=== PATIENT | female | born 1955 | race Caucasian/White ===

== ENCOUNTER 2020-08-08 07:44 | Day surgery (SDC) | payer OTHER ==
[~2020-08-08 07:44] MED LIST: Lactated Ringers 1,000 ML IV SCH
[2020-08-08] MEDS ORDERED: Propofol 200 MG/20 ML SDV ONE ×2 (09:09→12:02)
[2020-08-08] MEDS ORDERED: fentaNYL 100 MCG/2 ML SDV ONE (09:09)
[2020-08-08 13:02] VITALS: BP 180/81; PULSE 75
--- NOTE | 2020-08-08 13:34 | OR ---
PREOPERATIVE DIAGNOSIS: History of colon polyps. POSTOPERATIVE DIAGNOSIS: Colon polyps. PROCEDURE PERFORMED: Total flexible colonoscopy with biopsies. ANESTHESIA: MAC anesthesia. COMPLICATIONS: None. BLOOD LOSS: Minimal. FINDINGS: 1. Ascending colon polyp, 8 mm, cold snare. 2. Transverse colon polyp, 5 mm, cold snare. 3. Sigmoid polyp, 4 mm, cold forceps. 4. Rectal polyp, 2 mm, cold forceps. START TIME: 1137. CECUM TIME: 1155. STOP TIME: 1215. BOWEL PREP: [place] class 3. INDICATIONS FOR PROCEDURE: Lita Roque is a 64-year-old female who has a history of colon polyps. Her last colonoscopy was 5 years ago. She has no family history of colorectal cancer. She denies bloody or dark black stools, here for colonoscopy. DETAILS OF PROCEDURE: Informed consent was obtained. The patient was brought to the procedure room and placed in left lateral decubitus position. MAC anesthesia was induced by Anesthesia colleagues. Colonoscope was introduced into the rectum and advanced all the way to the cecum. Appendiceal orifice and ileocecal valve were photographed. The colonoscope was then slowly withdrawn. No pathology was identified except for what is mentioned in the above findings section. A retroflexed view was obtained and the procedure was terminated. PATHOLOGY: A) Colon, ascending, polyp Fragmented tubular adenoma (s). No high-grade dysplasia or malignancy identified. B) Colon, transverse, polyp Sessile serrated polyp with features suggestive of sessile serrated adenoma. No high-grade dysplasia or malignancy identified. C) Colon, sigmoid, polyp Tubular adenoma. No high-grade dysplasia or malignancy identified. D) Colon, rectum, polyp Hyperplastic polyp. Repeat colonoscopy in 3 years. RKM: 08/08/2020 12:21:17 MODL: 08/08/2020 12:48:52 /[id number]
--- NOTE | 2020-08-14 08:41 | LETTER ---
08/13/2020 Vahid Ngo Piter [id number] [address] [place] [phone] RE: VAHID NGO PITER : [id number] Dear Roque: I am writing to inform you of the pathology results of your recent colonoscopy. You had 3 precancerous polyps. A precancerous polyp does not contain cancer, but it can become cancer, which is why we removed them. You also had 1 hyperplastic polyp which was completely benign and carries no risk of malignancy. You will need a repeat screening colonoscopy in 3 years. Please let me know if you have any questions or concerns about this. Warmest regards,
== END 2020-08-08 13:30 | disposition home or self-care (01) ==
LOC: VM.SDS 07:44
PROVIDERS: ATTEND Student in an Organized Health Care Education/Training Program
DX: Z12.11 Encounter for screening for malignant neoplasm of colon (principal); M81.0 Age-related osteoporosis without current pathological fracture; E78.00 Pure hypercholesterolemia, unspecified; G43.109 Migraine with aura, not intractable, without status migrainosus; G89.29 Other chronic pain; M25.552 Pain in left hip; E55.9 Vitamin D deficiency, unspecified; F17.210 Nicotine dependence, cigarettes, uncomplicated; D12.2 Benign neoplasm of ascending colon; D12.3 Benign neoplasm of transverse colon; D12.5 Benign neoplasm of sigmoid colon; K62.1 Rectal polyp; Z98.890 Other specified postprocedural states
CPT/HCPCS: 00811; J2704; J3010; J7120

== ENCOUNTER 2023-09-19 08:30 | Day surgery (SDC) | payer OTHER ==
[2023-09-19] MEDS: Lactated Ringers 1,000 ML IV SCH (08:45)
[2023-09-19] MEDS ORDERED: Midazolam 1 MG/ML 2 ML SDV ONE (09:40)
[2023-09-19] MEDS ORDERED: fentaNYL 100 MCG/2 ML SDV ONE (09:40)
[2023-09-19] MEDS ORDERED: Propofol 200 MG/20 ML SDV ONE (09:40)
[2023-09-19 10:18] VITALS: BP 184/86; PULSE 86
== END 2023-09-19 11:25 | disposition home or self-care (01) ==
LOC: VM.SDS 08:30
PROVIDERS: ATTEND Surgery
DX: Z12.11 Encounter for screening for malignant neoplasm of colon (principal); E78.00 Pure hypercholesterolemia, unspecified; I10 Essential (primary) hypertension; F32.A Depression, unspecified; Z79.899 Other long term (current) drug therapy; Z88.5 Allergy status to narcotic agent; Z87.891 Personal history of nicotine dependence; Z86.010 Personal history of colon polyps
CPT/HCPCS: 45378; J2250; J2704; J3010; J7120; J3490

== ENCOUNTER 2024-06-18 15:49 | Emergency (ER) | payer OTHER ==
[2024-06-18] MEDS ORDERED: Sodium Chloride 0.9% 10 ML Syringe FLUSH PRN (15:55)
[2024-06-18 16:13] LABS: BASOPHILS PERCENT AUTO 0.2 % (0.2-1.2); EOSINOPHILS ABSOLUTE AUTO 0.1 x10^3/uL (0.0-0.5); HEMATOCRIT 40.5 % (33.0-47.0); HEMOGLOBIN 13.5 g/dL (12.0-16.0); LYMPHOCYTES ABSOLUTE AUTO 1.5 x10^3/uL (1.0-4.8); LYMPHOCYTES PERCENT AUTO 24.4 % (25.0-50.0); MEAN CORPUSCULAR HEMOGLOBIN 30.5 pg (26.0-32.0); MEAN CORPUSCULAR HGB CONC 33.3 g/dL (32.0-36.0); MEAN CORPUSCULAR VOLUME 91.4 fL (78.0-93.0); MONOCYTES ABSOLUTE AUTO 0.7 x10^3/uL (0.0-0.8); MONOCYTES PERCENT AUTO 10.8 % (2.0-11.0); NEUTROPHILS PERCENT AUTO 63.6 % (50.0-80.0); PLATELET COUNT,PLT 250 x10^3/uL (130-400); RED BLOOD CELL COUNT 4.43 x10^6/uL (4.00-5.50); WHITE BLOOD CELL COUNT,WBC 6.2 x10^3/uL (4.0-10.0)
[2024-06-18] MEDS: Lactated Ringers 1,000 ML IV ONE (16:16)
[2024-06-18] MEDS: Ondansetron 4 MG/2 ML SDV IVPUSH ONE (16:16)
[2024-06-18] MEDS: Labetalol 20 MG/4 ML Syringe IVPUSH ONE ×3 (16:18→17:08)
[2024-06-18 16:38] LABS: A/G RATIO 1.03; ALANINE AMINOTRANSFERASE,ALT 25 U/L (14-59); ALBUMIN 3.9 g/dL (3.4-5.0); ALKALINE PHOSPHATASE 71 U/L (46-116); ASPARTATE AMNIOTRANSFERASE,AST 25 U/L (15-37); BILIRUBIN TOTAL 0.3 mg/dL (0.2-1.0); BLOOD UREA NITROGEN,BUN 21 mg/dL (7-18); CARBON DIOXIDE,CO2 25 mmol/L (21-32); CHLORIDE,CL 105 mmol/L (98-107); CREATININE 1.1 mg/dL (0.55-1.02); EST CRCL DRUG DOSING (CG) 37.45 mL/min; GLUCOSE RANDOM 91 mg/dL (70-99); MAGNESIUM 1.9 mg/dL (1.8-2.4); PROTEIN TOTAL,TP 7.7 g/dL (6.4-8.2); SODIUM,NA 138 mmol/L (136-145)
[2024-06-18 16:41] LABS: C-REACTIVE PROTEIN < 0.50 mg/dL (<=0.50); ESTIMATED GFR 55 mL/min (>=60)
[2024-06-18 17:20] VITALS: BP 170/95; PULSE 70
[2024-06-18] MEDS: amLODIPine 5 MG Tab PO ONE (17:31)
== END 2024-06-18 17:41 | disposition home or self-care (01) ==
LOC: VM.ED 15:49
DX: I10 Essential (primary) hypertension (principal); E78.00 Pure hypercholesterolemia, unspecified; Z79.899 Other long term (current) drug therapy; Z88.5 Allergy status to narcotic agent
CPT/HCPCS: 70450; 71045; 80053; 83735; 84484; 85025; 86140; 93005; 96361; 96374; 96375; 96376; 99285-25; A9270-GY; J1920; J2405; J7120